=== PATIENT | female | born 1960 | race Caucasian/White ===

== ENCOUNTER 2022-06-01 16:19 | Outpatient (REF) | payer OTHER, SELFPAY ==
[2022-06-01 16:41] LABS: MANUAL DIFF FLAG NO
[2022-06-01 17:26] LABS: Basophils Absolute Auto 0.1 X10*3/uL (0.0-0.2); Basophils Percent Auto 0.7 % (0-2); Eosinophils Absolute Auto 0.1 X10*3/uL (0.0-0.4); Eosinophils Percent Auto 1.3 % (0-4); Hematocrit 39.1 % (37.0-47.0); Hemoglobin 13.5 g/dl (12.0-16.0); Imm Gran Abs Auto 0.02 X10*3/uL (0.00-0.03); Imm Gran Pct Auto 0.2 % (0.0-0.4); Lymphocytes Absolute Auto 4.4 X10*3/uL (1.2-4.9); Mean Corpuscular HGB Conc 34.5 g/dl (31.0-35.0); Mean Corpuscular Hemoglobin 30.8 pg (27.0-33.0); Mean Corpuscular Volume 89.3 fL (80.0-98.0); Mean Platelet Volume 11.8 fL (9.4-12.3); Monocytes Absolute Auto 0.6 X10*3/uL (0.1-1.2); Neutrophils Absolute Auto 3.4 x10*3/uL (2.0-8.3); Neutrophils Percent Auto 39.8 % (45-73); Platelet Count 212 X10*3/uL (160-400); Red Blood Count 4.38 X10*6/uL (4.20-5.50); Red Cell Distribution Width 13.4 % (11.0-16.0); White Blood Count 8.6 X10*3/uL (4.8-10.8)
[2022-06-01 17:39] LABS: Anion Gap 13 (12-20); Blood Urea Nitrogen 11 mg/dL (9-16); Calcium 9.3 mg/dL (8.4-10.2); Carbon Dioxide 25 mmol/L (22-29); Chloride 106 mmol/L (96-108); Estimated Glomerular Filt Rate > 60; Glucose Random 91 mg/dL (60-115); Potassium 4.5 mmol/L (3.3-5.1); Sodium 139 mmol/L (135-145)
[2022-06-01 19:17] LABS: Erythrocyte Sedimentation Rate 31 MM/HR (0-20)
== END 2022-06-01 16:20 | disposition home or self-care (01) ==
LOC: HO.LAB 16:19
PROVIDERS: Visit Provider Psychiatry & Neurology Neurology
DX: G44.209 Tension-type headache, unspecified, not intractable (principal)
CPT/HCPCS: 36415; 80048; 85025; 85652

== ENCOUNTER 2024-09-04 16:19 | Outpatient (REF) | payer OTHER, SELFPAY ==
--- OUTSIDE RECORDS SUMMARY | 2024-09-04 16:26 | XMS_ITS | Encounter Summary ---
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 Alcohol Use Standard Drinks/Week Comments No 0 (1 standard drink = 0.6 oz pur e alcohol) Comments No Sex and Gender Information Value Date Recorded Sex Assigned at Female 05/30/2017 2:14 PM PST Legal Sex Female 11:36 AM PDT Gender Identity Female 05/30/2017 2:14 PM PST Sexual Orientation Straight 09/11/2017 12 :25 PM PST documented as of this encounter Plan of Treatment Not on file documented as of this encounter Visit Diagnoses Not on filedocumented in this encounter Care Teams Lay Out Carpenter Relationship Specialty Start Date End Date Miladis Bosch FNP-C [address] [place] [id number] PCP - General Internal Medicine 12/07/23 documented as of this encounter
--- OUTSIDE RECORDS SUMMARY | 2024-09-04 16:26 | XMS_ITS | Clinical Summary ---
Author Organization [facility] Address [address] [place] [address] Phone Care Team Providers Care Interior Wirer Name Role Phone Maycol Amin MD Primary Care Provider + Allergies Active Allergy Reactions Criticality Noted Date Comments Aspirin Nausea And Vomiting 01/21/2021 Stomach upset Medications vit Bcomp,C/folic acid/zinc (B OAGDOXG-G-TDIEA ACID-ZN ORAL) Take 1 tablet by mouth 1 (one) time each day. Active cyanocobalamin/ mecobalamin (cyanocobalamin -methylcobalami n) 5,000 mcg/mL drops Place under the tongue. Active magnesium 200 mg tablet Take by mouth. Activ e meloxicam (MOBIC) 15 mg tablet Take 1 tablet (15 mg total) by mouth 1 (one) time each day. Active albuterol HFA (PROAIR HFA ; PROVENTIL HFA ; VENTOLIN HFA) 90 mcg/actuation inhaler Inhale 2 puffs by mouth every 4 (four) hours if needed. Active amitriptyline (ELAVIL) 10 mg tablet Take 1 tablet (10 mg total) by mouth at bedtime. Active aspirin 81 mg EC tablet Take 1 tablet (81 mg total) by mouth 1 (one) time each day. Active atorvastatin (LIPITOR) 40 mg tablet Take 1 tablet (40 mg total) by mouth 1 (one) time each day. Active baclofen (LIORESAL) 10 mg tablet Take 1 tablet (10 mg total) by mouth 3 (three) times a day. Active diclofenac (VOLTAREN) 1 % topical gel Apply topically. Active docusate sodium (COLACE) 100 mg capsule Take 1 capsule (100 mg total) by mouth 2 (two) times a day. Active ferrous sulfate 325 mg (65 mg elemental iron) tablet Take 1 tablet (325 mg total) by mouth 1 (one) time each day. Active gabapentin (NEURONTIN) 100 mg capsule Take 100 mg by mouth daily. Active ibuprofen (ADVIL,MOTRIN) 800 mg tablet Take 1 tablet (800 mg total) by mouth every 8 (eight) hours if needed. Active metoprolol succinate (TOPROL-XL) 50 mg 24 hr tablet Take 1 tablet (50 mg total) by mouth 1 (one) time each day. Active nitroglycerin (NITROSTAT) 0.[address] 0.4 mg under the tongue every 5 minutes as needed. Active oxyBUTYnin XL (DITROPAN-XL) 10 mg 24 hr tablet Take 1 tablet (10 mg total) by mouth 1 (one) time each day. Active pantoprazole (PROTONIX) 20 mg EC tablet Take 20 mg by mouth daily. Active pantoprazole (PROTONIX) 40 mg EC tablet Take 1 Tablet by mouth daily. Take in am on empty stomach, wait 30 mins and then eat to activate the medication 2 Active simethicone (MYLICON,GAS-X) 125 mg capsule Take by mouth. Active sucralfate (CARAFATE) 100 mg/mL suspension Take 10 mL by mouth 4 times daily. 2 Active Simethicone 125 mg tablet Take by mouth. 1 Capsule by mouth 3 times daily as needed (gassiness)., Disp-120 Capsule, R-6, Print Active dicyclomine (BENTYL) 10 mg capsule Take 1 capsule (10 mg total) by mouth 4 (four) times a day (before meals and nightly). Active loperamide (IMODIUM A-D) 2 mg tablet Take 1 tablet (2 mg total) by mouth 4 (four) times a day if needed for diarrhea. Active Active Problems Problem Noted Date Diagnosed Date Duodenitis 04/17/2024 Epigastric pain 04/17/2024 Gastric erosions 04/17/2024 Gastritis 04/17/2024 Generalized abdominal pain 04/17/2024 Lactose intolerance 04/17/2024 Passage of loose stools 04/17/2024 Cervical spondylosis 12/22/2022 Overview (04/17/2024): Last Assessment & Plan: Patient follows up for her neck and right arm pain today. She states she still gets neck and right upper trapezius pain approximately 6-8/10 on average, uses heat on her neck and knees, has a TENS unit that is been helping. She finds it difficult to lift the right arm above shoulder level due to the pain in the right upper trapezius. Unfortunately she has been having vascular and cardiac issues, was prescribed home PT, states they are doing minimal exercises given her other medical issues. She states she has very little energy, cannot leave her home unless for appointments, spends time in bed throughout the day. She does not feel steady when standing, legs feel weak like she will fall, notes left leg pain. Vascular notes mention bilateral carotid artery stenosis 75-99%, patient states she is having carotid artery endarterectomy this month on the at [facility]. She has been having issues with her blood pressure, states its been unstable, either very high or low. She has been dealing with dizziness, shortness of breath, angina, has history of a stroke in 2010. Patient had C-spine MRI 11/14/2022 at [facility] that shows diffuse disc bulging C4-5, mild right foraminal narrowing. She had EMG/NCS study 12/20/2022 that showed early carpal tunnel syndrome on the right, normal EMG right C7-T1 innervated muscles. Ms. Wagner will continue her home physical therapy for her neck pain, I gave her a new prescription to include massage to the upper trapezius, which she feels will help her. However the priority at this time is addressing her carotid artery stenosis, medical issues. I asked her to give us a call after her surgery when she is recovered, we can have her follow-up in the office to further address her neck pain, no concerning findings on neuro exam. Patient speaks Urdu, we used [employer] spanish interpreter/translator Deanne #[id number]. Hot flashes due to menopause 12/06/2022 Osteoarthritis of right hand 01/21/2021 Left leg pain 01/21/2021 Right leg pain 01/21/2021 Sciatica 01/21/2021 [facility] Overview (04/17/2024): 02/20/18 - PT at [facility] for back and leg pain, c/o multiple sxs (swelling in leg, dizziness, heart palpitations, and ringing in ears), was advised to see PCP first and will need new referral to c/w PT. B12 deficiency 10/14/2017 Arthritis of carpometacarpal (CMC) joint of left thumb 04/05/2017 Overview (04/17/2024): X-rays done 03/31/17 at [facility] 10/04/17 - L EMG at [facility]: SUMMARY: The left median and ulnar motor distal latencies, distal amplitudes, forearm nerve conduction velocities and left ulnar across elbow nerve conduction velocity are normal. The left median, ulnar and superficial radial antidromic sensory amplitudes, peak distal latencies, forearm nerve conduction velocities and ulnar across elbow nerve conduction velocity are normal. The left median and ulnar peak distal latencies are normal to palmar technique mixed nerve stimulation. Constipation, chronic 12/06/2013 Incontinence of urine in female 12/06/2013 Plantar fasciitis 12/06/2013 HLD (hyperlipidemia) 04/25/2013 HTN (hypertension) 04/25/2013 Obesity (BMI 30.0-34.9) 04/25/2013 Prediabetes 04/25/2013 CVA (cerebral vascular accident) 09/21/2011 Overview (04/17/2024): Sees Dr bradley at [facility], told has carotid blockage No intervention did Immunizations Name Administration Dates Next Due Influenza trivalent, with pr eservative (Fluzone; Afluria) 6mo and older 04/10/2017,04/25/2013 PPD Test 01/07/2015 Surgical History Surgery Date Site/Laterality Comments SHOULDER SURGERY Right PROCEDURE: HISTORICAL SHOULDER SURGERY COLONOSCOPY PROCEDURE: HISTORICAL COLONOSCOPY Medical History Medical History Date Comments Mild intermittent asthma, uncomplicated DX:Mild intermittent asthma, uncomplicated Vitamin D deficiency DX:Vitamin D deficiency Mixed hyperlipidemia DX:Mixed hy perlipidemia Nicotine dependence DX:Nicotine dependence Cerebral infarction (CMS/HCC) 2008 DX :Cerebral infarction (HCC) Acid reflux DX:Acid reflux Constipation DX:Constipation Left knee pain DX:Left knee sal n Low back pain DX:Low back pain Right leg pain DX:Right leg sal n Urinary incontinence DX:Urinary incontinence Chest pain DX:Chest pain Epigastric abdominal pain DX:Epi gastric abdominal pain Hypoglycemia, unspecified DX:Hyp oglycemia, unspecified Essential (primary) hypertension DX:Essential (primary) hypertension Passage of loose stools DX:Passa ge of loose stools Generalized abdominal pain DX:Ge neralized abdominal pain Epigastric pain DX:Epigastric pa in Gastritis DX:Gastritis Duodenitis DX:Duodenitis Gastric erosions DX:Gastric eros ions Lactose intolerance DX:Lactose i ntolerance Carotid artery stenosis DX:Carot id artery stenosis; COMMENT: surgery scheduled 06/09/23, carotid duplex - 70 to 99% stenosis bilaterally. Gassiness DX:Gassiness Abdominal pain DX:Abdominal sal n Irritable bowel syndrome DX:Irri table bowel syndrome Pain with bowel movements DX:Sal n with bowel movements Abdominal cramping DX:Abdominal cramping Social History Tobacco Use Types Packs/Day Years Used Date Smoking Tobacco: Every Day Smokeless Tobacco: Never Alcohol Use Standard Drinks/Week Comments Never 0 (1 standard drink = 0.6 oz pur e alcohol) Comments Unknown Sex and Gender Information Value Date Recorded Sex Assigned at Not on file Legal Sex Female 9:55 AM EST Gender Identity Not on file Sexual Orientation Not on file Obstetrics History Last Filed Vital Signs Vital Sign Reading Time Taken Comments Blood Pressure 124/72 02/23/2024 1:21 PM EDT Pulse 74 02/23/2024 1:21 PM EDT Temperature - - Respiratory Rate - - Oxygen Saturation - - Inhaled Oxygen Concentration - - Weight 95.3 kg (210 lb 3.2 oz) 02/23/2024 1:21 P M EDT Height 166.4 cm (5' 5.5 ) 02/23/2024 1:21 PM EDT Body Mass Index 34.45 02/23/2024 1:21 PM EDT Plan of Treatment Health Maintenance Due Date Last Done Comments DTaP,Tdap,and Td Vaccines (1 - Tdap) 1980 Pneumococcal Vaccine: 50+ Years (1 of 2 - PCV) 1980 Pneumococcal Vaccine: Pediatrics (0 to 5 Years) and At-Risk Patients (6 to 64 Years) (1 of 2 - PCV) 1980 Cervical Cancer Screening: P ap Smear 1982 Zoster Vaccines (1 of 2) 11/12/2011 Depression Screening 06/14/2022 HIV Screening 06/14/2022 Hepatitis C Screening 06/14/2022 Medicare Annual Wellness Visit 06/14/2022 Social Influencers of Health Screening 06/14/2022 Hypertension/CHF/CAD Annual BMP Blood Test 08/30/2023 04/15/2022 Breast Cancer Screening 01/25/2024 01/25/20 22, 01/28/2021 COVID-19 Vaccine (1 - 2023-2 5 season) 2024 Influenza Vaccine (#1) 2024 7, 04/25/2013 Cholesterol Screening (Lipid Panel) 04/15/2027 04/15/2022 Colorectal Cancer Screening: Colonoscopy 08/26/2031 08/26/2021 RSV Immunization Patients 60 + Years Old (1 - 1-dose 75+ series) 2036 HIB Vaccines Aged Out No longer eligi ble based on patient's age to complete this topic HPV Vaccines Aged Out No longer eligi ble based on patient's age to complete this topic Hepatitis A Vaccines Aged Out No long er eligible based on patient's age to complete this topic Hepatitis B Vaccines Aged Out No long er eligible based on patient's age to complete this topic IPV Vaccines Aged Out No longer eligi ble based on patient's age to complete this topic MMR Vaccines Aged Out No longer eligi ble based on patient's age to complete this topic Meningococcal ACWY Vaccine Aged Out N o longer eligible based on patient's age to complete this topic Meningococcal B Vacine Aged Out No lo nger eligible based on patient's age to complete this topic RSV Immunization Patients Under 20 months Aged Out No longer eligible b ased on patient's age to complete this topic Varicella Vaccines Aged Out No longer eligible based on patient's age to complete this topic Procedures Procedure Name Priority Date/Time Associated Diagnosis Comments ANNUAL BMP BLOOD TEST Routine 04/15/2022 LIPID PANEL Routine 04/15/2022 [facility] SCREENING DIGITAL Routine 01/24/2022 4:43 PM EDT Encounter for screening mammogram for malignant neoplasm of breast COLONOSCOPY Routine 08/26/2021 from Last 3 Months or Most Recently Relevant to Health Maintenance Results * Annual BMP Blood Test (04/15/2022) Annual BMP Blood Test abstracted Historical Provider HEALTH MAINTENANCE Final Result * Lipid panel (04/15/2022) Triglycerides 0 mg/dL Comment:no interpretation, a bstracted Cholesterol 0 mg/dL Comment:no interpretation, a bstracted HDL 0 mg/dL Comment:no interpretation, a bstracted LDL Cholesterol 0 mg/dL Comment:no interpretation, a bstracted Blood Venous blood specimen / Unknown Historical Provider LAB BLOOD ORDERABLES Aspen l Result * EARLENE SCREENING DIGITAL (01/24/2022 4:43 PM EDT) Anatomical Region Laterality Modality Mammography 01/24/2022 2:13 PM EDT Narrative 01/24/2022 4:43 PM EDT [facility] Diagnostic Imaging Department [address] [place] [address] Patient: ??JESÚS WAGNER ?/Age/Sex: 1960 - 61 - F Unit#: ??[id number] ? Location/Status: ??SPDIMAM/REG CLI ? Mnemonic/Ordering Site: ??DIGSC/SPMAM Ordering Physician: ??VISHNU MUHAMMAD MD Earlene Screening Digital - 01/24/22 - [id number] INDICATION: SCREENING COMPARISON: [facility] and outside mammograms dating back to 09/28/2012 TECHNIQUE: CC and MLO views of the breasts were obtained, using full field digital mammography with 3D tomosynthesis views in the MLO projection. Computer aided detection with the [employer].2-H was employed. FINDINGS: The breasts contain scattered fibroglandular tissues. Tissue marker visualized within the posteromedial left breast. ??Multiple circumscribed nodules and benign-appearing breast calcifications are again visualized bilaterally ?? . No suspicious masses, suspicious microcalcifications, or areas of architectural distortion are identified. ??There are no secondary signs of breast malignancy. IMPRESSION: ??No specific mammographic evidence of breast malignancy. Lack of an imaging correlate should not deter or delay biopsy of a clinically significant palpable finding. BI-RADS ??- Category 2 - Benign finding 3342F, 7025F Annual screening mammography is recommended. Patient entered into a reminder system with a target date for the next mammogram. ([id number] / [id number]) , ??[id number] Dictating Physician: ??UVALDO GAMBOA MD Electronically Signed by: ??UVALDO GAMBOA MD Dic Date/Time: ??01/24/22 1637 Sign date/Time: ??01/24/22 1643 Procedure Note Uvaldo Gamboa MD - 07/06/2022 [facility] Diagnostic Imaging Department [address] [place] [address] Patient: JESÚS WAGNER /Age/Sex: 1960 - 61 - F Unit#: [id number] Location/Status: [facility]/REG CLI Mnemonic/Ordering Site: [facility] Ordering Physician: VISHNU MUHAMMAD MD Earlene Screening Digital - 01/24/22 - 1445 INDICATION: SCREENING COMPARISON: [facility] and outside mammograms dating back to 09/28/2012 TECHNIQUE: CC and MLO views of the breasts were obtained, using full field digital mammography with 3D tomosynthesis views in the MLO projection. Computer aided detection with the [employer] 7.2-H was employed. FINDINGS: The breasts contain scattered fibroglandular tissues. Tissue marker visualized within the posteromedial left breast. Multiple circumscribed nodules and benign-appearing breast calcifications areagain visualized bilaterally . No suspicious masses, suspicious microcalcifications, or areas ofarchitectural distortion are identified. There are no secondary signs of breastmalignancy. IMPRESSION: No specific mammographic evidence of breast malignancy. Lack of an imaging correlate should not deter or delay biopsy of aclinically significant palpable finding. BI-RADS - Category 2 - Benign finding 3342F, 7025F Annual screening mammography is recommended. Patient entered into a reminder system with a target date for the next mammogram. [id number] / [id number]) , [id number] Dictating Physician: UVALDO GAMBOA MD Electronically Signed by: UVALDO GAMBOA MD Dic Date/Time: 01/24/22 1637 Sign date/Time: 01/24/22 1643 Vishnu Muhammad MD IMG BI PROCEDURES Final Result * Colonoscopy (08/26/2021) Colonoscopy normal, abstracted Anatomical Region Laterality Modality Other us Historical Provider HEALTH MAINTENANCE Final Result from Last 3 Months or Most Recently Relevant to Health Maintenance Insurance [employer] Care Teams Interior Wirer Relationship Specialty Start Date End Date Maycol Amin MD PCP - General 03/17/23
--- OUTSIDE RECORDS SUMMARY | 2024-09-04 16:26 | XMS_ITS | Clinical Summary ---
Author Organization [facility] Address [address] [place] [address] Care Team Providers Care Stacker Name Role Phone Danitza Miladis SANCHEZ-Luis Primary Care Provider [phone] Source Comments PLEASE NOTE, if this patient is a minor, it may be UNLAWFUL to discuss sensitive information that is contained in these records (such as FAMILY PLANNING, MENTAL HEALTH or SUBSTANCE ABUSE) with the minor patient's parent or other person without the patient's specific authorization.[facility] Allergies No known active allergies Medications compression stockingIndications :Venous insufficiency of leg Dx: Venous Insuf bilat legs. Use during the day, take off at night 2 each 2 03/07/20 14 Active phenylephrine-pramo xine (PREPARATION H) 0.25-1 % rectal creamIndications:He morrhoids, unspecified hemorrhoid type Place rectally 4 (four) times daily as needed for hemorrhoids 26 g 11 11/24/19 17 Active Miscellaneous Medical Supply miscIndications:Rig ht hand pain by miscellaneous route once daily DX left hand pain - Brace to wear daily 1 Each 03/30/20 17 Active witch fracisco (RASHARD DAVISON,) 50 %Indications:Hemorr hoids, unspecified hemorrhoid type Use as needed up to 6 times per day or after each bowel movement. 100 Each 09/11/19 18 Active cyanocobalamin, vitamin B-12, 1,000 mcg/mL injectionIndication s:B12 deficiency Inject 1,000 mcg into the muscle every 30 (thirty) days 1 Vial 5 10/15/19 18 Active omeprazole (PRILOSEC) [address] capsuleIndications: Gastroesophageal reflux disease without esophagitis,Erosive gastritis Take 2 Caps by mouth every morning before breakfast Do not crush or chew. 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 Dx: M54.41, Z74.09, Z91.81. Wt:216 lb, Ht: 5'5 . Length: lifetime. 1 Each 05/28/20 18 Active ibuprofen (ADVIL,MOTRIN) 800 mg tabletIndications:A rthritis of carpometacarpal (CMC) joint of left thumb TAKE 1 TABLET BY MOUTH THREE TIMES DAILY NEEDED FOR PAIN. TAKE WITH FOOD 90 Tab 08/23/19 19 Active docusate sodium (COLACE) 100 mg capsule Take 100 mg by mouth daily Active atorvastatin (LIPITOR) 40 mg tablet Take 1 Tablet by mouth once daily Active oxybutynin chloride (DITROPAN-XL) 10 mg 24 hr tablet Take 10 mg by mouth daily Active nicotine (NICODERM CQ) 21 mg/24 hr patch daily 04/19/20 21 Active ferrous sulfate 325 mg (65 mg iron) tablet Take 1 Tablet by mouth once daily 04/02/20 22 Active ergocalciferol, vitamin D2, (VITAMIN D2) 1,250 mcg (50,000 unit) capsule 1 capsule 11/16/19 22 Active nitroglycerin (NITROSTAT) 0.4 mg SL tablet TAKE 1 PILL SUBLINGUALLY EVERY 5 MINUTES Active magnesium 200 mg tab Take 1 Tablet by mouth daily Active albuterol sulfate 90 mcg/actuation inhaler Inhale 2 Puffs into the lungs as needed Active aspirin [address] tabletIndications:C erebrovascular accident (CVA), unspecified mechanism (HCC-CMS) Take 1 Tablet by mouth daily 90 Tablet 3 04/15/20 22 Active metoprolol succinate XL (TOPROL-XL) 50 mg 24 hr tabletIndications:P rimary hypertension,Cerebr ovascular accident (CVA), unspecified mechanism ([facility]) Take 1 Tablet by mouth once daily 90 Tablet 3 04/15/20 22 Active Active Problems Problem Noted Date Diagnosed Date Chronic midline low back pain with bilateral sci atica 02/06/2018 Overview (05/06/2018): 02/20/18 - PT at [facility] for back and leg pain, c/o multiple sxs (swelling in leg, dizziness, heart palpitations, and ringing in ears), was advised to see PCP first and will need new referral to c/w PT. Pain in both lower extremities 10/14/2017 Overview (10/14/2017): Seen by [facility] Vascular surgery - 1. Bilateral lower extremity leg pain and edema. I wrote her a prescription for compression stockings. This will help with the edema. It would be beneficial for her to lose weight as well. This will help with the edema. It is hard for me to say what her bilateral lower extremity pain is due to. It could be an arthritic problem versus spine problem. I do note, however, that it is not from her vasculature. She has excellent pulses and she has very minimal venous disease. B12 deficiency 10/14/2017 Arthritis of carpometacarpal (CMC) joint of left thumb 04/05/2017 Overview (02/26/2018): X-rays done 03/31/17 at [facility] 10/04/17 - L EMG at [facility]: SUMMARY: The left median and ulnar motor [...] normal to palmar technique mixed nerve stimulation. Erosive gastritis. EGD Feb 15 [facility]. No acute bleeding. +H. Pylori. 03/10/2015 Plantar fasciitis 12/06/2013 Incontinence of urine in female 12/06/2013 Constipation, chronic 12/06/2013 Obesity (BMI 30.0-34.9) 04/25/2013 HLD (hyperlipidemia) 04/25/2013 HTN (hypertension) 04/25/2013 H/O Prediabetes 04/25/2013 CVA (cerebral vascular accident) ([facility]) 09/20 Overview (09/20/2013): Sees Dr bradley at [facility], told has carotid blockage No intervention did Tobacco abuse disorder Resolved Problems Problem Noted Date Diagnosed Date Resolved Date Forgetfulness - seen by Neuro 10/14/2017 10/14/2017 Overview (10/14/2017): Memory loss started in 201504/07/16 - Seen by Neurology at [facility]: She also describes a worsening of her mood around the same time and I wonder if her depression is getting a pseudodementia- like state. Her poor sleep is also likely worsening her memory. I have requested lab work for reversible causes of memory decline. I requested a CT scan of her head to assess for any past stroke or extensive microvascular disease and also to evaluate for any pattern of atrophy. She will follow up with our office after testing. H/O colonoscopy with adenoma t polyp removed. 2012. [facility]. Repeat colonosc in 3ys. due November 2015 01/23/2015 10/14/2017 Overview (01/23/2015): . Obesity 12/19/2013 03/07/2014 Hypercholesterolemia 12/19/2013 014 Immunizations Name Administration Dates Next Due INFLUENZA, SEASONAL, INJECTABLE 04/10/2017 INFLUENZA, SEASONAL, INJECTABLE, PRESERVATIVE FR EE 04/25/2013 PPD 01/07/2015 Family History Medical History Relation Name Comments Cancer Maternal Aunt lung cancer Heart Problems Mother Hypertension Mother Relation Name Status Comments Maternal Aunt Mother Social History Tobacco Use Types Packs/Day Years Used Date Smoking Tobacco: Former Cigarettes 1.5 30 Smokeless Tobacco: Never Tobacco Cessation:Counseling Given: Not Answered Comments:will work counselor next visit. 2 month Alcohol Use Standard Drinks/Week Comments No 0 (1 standard drink = 0.6 oz pur e alcohol) Social Connections Answer Date Recorded Connectedness 0 06/15/2022 Financial Resource Strain Answer Date R ecorded Financial Resource Strain 0 2021 Stress Answer Date Recorded Stress 0 06/15/2022 Physical Activity Answer Date Recorded Physical Activity 0 04/08/2022 Food Insecurity Answer Date Recorded Food 0 06/15/2022 Transportation Needs Answer Date Record ed Transportation 0 06/15/2022 Housing Stability Answer Date Recorded Housing 0 06/15/2022 Safety and Environment Answer Date Archie rded Safety 0 06/15/2022 Utilities Answer Date Recorded Utilities 0 06/15/2022 Employment Answer Date Recorded Employment 0 04/08/2022 Comments No Sex and Gender Information Value Date Recorded Sex Assigned at Female 05/30/2017 2:14 PM PST Legal Sex Female 11:36 AM PDT Gender Identity Female 05/30/2017 2:14 PM PST Sexual Orientation Straight 09/11/2017 12 :25 PM PST Last Filed Vital Signs Vital Sign Reading Time Taken Comments Blood Pressure 139/86 04/15/2022 9:25 AM EDT Pulse 74 04/15/2022 9:25 AM EDT Temperature 37.1 ??C (98.7 ??F) 04/15/2022 9:25 AM ED T Respiratory Rate 16 04/15/2022 9:25 AM EDT Oxygen Saturation 97% 04/26/2018 9:34 AM EDT Inhaled Oxygen Concentration - - Weight 88 kg (194 lb) 04/15/2022 9:25 AM EDT Height 165.1 cm (5' 5 ) 08/10/2018 11:49 AM EST Body Mass Index 32.28 08/10/2018 11:49 AM EST Plan of Treatment Health Maintenance Due Date Last Done Comments HPV Screening 1961 Pap + HPV 1961 Tobacco Screening 1961 Imm-DTaP/Tdap/Td (1 - Tdap) 1980 Breast Cancer Screening (Mammogram) 2001 CT Colonography 2006 FIT/gFOBT 2006 Fecal DNA 2006 Flexible Sigmoidoscopy 2006 Imm-Zoster, Recombinant (1 of 2) 11/12/2011 Cervical Cancer Screening 12/06/2016 Pap Smear 12/06/2016 12/06/2013 Annual Preventive Care Visit 10/12/2018, 08/29/2016, 01/22/2015 Colonoscopy 04/19/2021 04/19/2016, 12/06/2012 Colorectal Cancer Screening 04/19/2021 Diabetes Screening 04/15/2023 04/15/2022, 0 04/15/2022, 08/10/2018, Additional history exists Lipid Screening 04/15/2023 04/15/2022, 08/18, 08/29/2016, Additional history exists Tobacco Cessation Counseling (#1) 04/15/2023 015 [id number] ( season) 2024 Imm-Influenza (#1) 2024 04/10/2017, 04/25/2013 Alcohol and Drug Screen 07/17/2024 06/15/20 22, 08/10/2018, 02/26/2018, Additional history exists Depression Annual Screen 07/17/2024 022, 08/10/2018, 09/11/2017, Additional history exists HIV Screening Completed 10/12/2017 Hepatitis C Screening Completed 10/12/2017 Cervical Ablation/Cold-Knife Conization Discontinued Cervical Cryotherapy Discontinued Colposcopy Discontinued Endometrial Biopsy Discontinued Excision/Leep Discontinued HPV Genotyping Discontinued Vaginal Pap Discontinued Vulvoscopy Discontinued Procedures Procedure Name Priority Date/Time Associated Diagnosis Comments COMPREHENSIVE METABOLIC PANEL Routine 04/15/2022 10:11 AM EDT Primary hypertension Obesity (BMI 30.0-34.9) Cerebrovascular accident (CVA), unspecified mechanism (HCC-CMS) LIPID PANEL Routine 04/15/2022 10:11 AM EDT Primary hypertension Mixed hyperlipidemia Cerebrovascular accident (CVA), unspecified mechanism (HCC-CMS) ANTIBODY HIV-1&HIV-2 SINGLE RESULT Routine 10/12/2017 11:37 AM EDT Routine lab draw HEPATITIS A,B,C PANEL Routine 10/12/2017 11:37 AM EDT Routine lab draw COLONOSCOPY Routine 04/19/2016 8:21 AM EDT from Last 3 Months or Most Recently Relevant to Health Maintenance Results * (ABNORMAL) LIPID PANEL (04/15/2022 10:11 AM EDT) Pathologist [facility] CHOLESTEROL, TOTAL 178 <200 mg/dL 99tests HDL CHOLESTEROL 41(L) > OR = 50 mg/dL 99tests TRIGLYCERIDES 168(H) <150 mg/dL 99tests LDL-CHOLESTEROL 109(H) 99 mg/dL (calc) 99tests Comment: Reference range: <100 Desirable range <100 mg/dL for primary prevention; ?? <70 mg/dL for patients with CHD or diabetic patients with > or = 2 CHD risk factors. LDL-C is now calculated using the Anton calculation, which is a validated novel method providing better accuracy than the Friedewald equation in the estimation of LDL-C. Gatito HAQUE et al. DARIUS. 2013;310(19): 4905-9557 (http://education.[employer]/faq/YWK732) CHOL/HDLC RATIO 4.3 <5.0 (calc) 99tests NON-HDL CHOLESTEROL 137(H) <130 mg/dL (calc) 99tests Comment: For patients with diabetes plus 1 major ASCVD risk factor, treating to a non-HDL-C goal of <100 mg/dL (LDL-C of <70 mg/dL) is considered a therapeutic option. Blood Blood / Unknown 04/15/2022 1 0:11 AM EDT 04/15/2022 10:12 AM EDT us Kingsley Cm PA-C LAB - BLOOD DRAW Final Result [facility] [address] [address], [facility] [address] [address] * (ABNORMAL) COMPREHENSIVE METABOLIC PANEL (04/15/2022 10:11 AM EDT) GLUCOSE 100(H) 65 - 99 mg/dL [facility] Comment: ?Fasting reference interval For someone without known diabetes, a glucose value between 100 and 125 mg/dL is consistent with prediabetes and should be confirmed with a follow-up test. UREA NITROGEN (BUN) 8 7 - 25 mg/dL [facility] CREATININE (blood) 0.80 0.50 - 1.05 mg/dL [facility] EGFR 84 > OR = 60 mL/min/1 .73m2 [facility] Comment: The eGFR is based on the CKD-EPI 2020 equation. To calculate the new eGFR from a previous Creatinine or Cystatin C result, go to https://www.kidney.org/professionals/ kdoqi/gfr%5Fcalculator BUN/CREATININE RATIO NOT APPLICABLE 6 - 22 [facility] SODIUM 138 135 - 146 mmol/L [facility] POTASSIUM 4.3 3.5 - 5.3 mmol/L [facility] CHLORIDE 106 98 - 110 mmol/L [facility] CARBON DIOXIDE 25 20 - 32 mmol/L [facility] CALCIUM 9.8 8.6 - 10.4 mg/dL [facility] PROTEIN, TOTAL 7.5 6.1 - 8.1 g/dL [facility] ALBUMIN 4.5 3.6 - 5.1 g/dL [facility] GLOBULIN 3.0 1.9 - 3.7 g/dL (calc) [facility] ALBUMIN/GLOBUL IN RATIO 1.5 1.0 - 2.5 (calc) [facility] BILIRUBIN, TOTAL 0.6 0.2 - 1.2 mg/dL [facility] ALKALINE PHOSPHATASE 68 37 - 153 U/L [facility] AST 14 10 - 35 U/L [facility] ALT 17 6 - 29 U/L [facility] Blood Blood / Unknown 04/15/2022 1 0:11 AM EDT 04/15/2022 10:12 AM EDT Kingsley Cm PA-C LAB - BLOOD DRAW Edited Resul t - Final [facility] [address] [address], [facility] [address] [address] * (ABNORMAL) HEPATITIS A,B,C PANEL (10/12/2017 11:37 AM EDT) HEPATITIS B SURFACE ANTIBODY NEGATIVE NEGATIVE [facility] HEPATITIS B SURFACE ANTIGEN NEGATIVE NEGATIVE [facility] Comment: Over the counter supplements containing high doses of biotin may interfere with this assay. ??If interference is suspected, patients shoud be retested after refraining from biotin supplements for 72 hours. HEPATITIS C VIRUS DIAGNOSTIC NEGATIVE NEGATIVE [facility] HEPATITIS B CORE ANTIBODY NEGATIVE NEGATIVE [facility] HEPATITIS A ANTIBODY TOTAL POSITIVE(A) NEGATIVE [facility] Comment: Over the counter supplements containing high doses of biotin may interfere with this assay. ??If interference is suspected, patients shoud be retested after refraining from biotin supplements for 72 hours. Blood specimen (specimen) Blood / Unknown 10/12/2017 11:37 AM EDT 10/12/2017 11:48 AM EDT [facility] - 10/12/2017 4:13 PM EDT [facility] [address] [place] [address] PT ID [id number] ORD# [id number] Megan Skinner PA-C LAB - BLOOD DRAW Edited R esult - Final [address] [address], [place] [phone] * HIV-1 & HIV-2 ANTIBODIES (10/12/2017 11:37 AM EDT) [facility] HIV 1 AND 2 ANTIBODY SCREEN NEGATIVE NEGATIVE [facility] Comment: This assay is a 4th generation assay allowing for earlier detection of HIV infection by detecting the presence of the HIV-1 p24 antigen as well as the traditional antibodies to HIV type 1 (including group O) and type 2. ??Use of a 4th generation assay is the current CDC recommendation for HIV screening. Blood specimen (specimen) Blood / Unknown 10/12/2017 11:37 AM EDT 10/12/2017 11:48 AM EDT [facility] - 10/12/2017 4:41 PM EDT [facility] [address] [place] [address] PT ID [id number] ORD# [id number] Megan Tereshchuk PA-C LAB - BLOOD DRAW Final Re sult [facility] [address] [place] [address], * COLONOSCOPY (04/19/2016 8:21 AM EDT) Impressions Natalie Florentino MA - 04/19/2016 8:21 AM EDT Colonoscopy Impressions: Diverticulosis of the transverse colon and descending colon Internal and external hemorrhoids Repeat in 5 years us Provider [facility] PROCEDURES Final Result from Last 3 Months or Most Recently Relevant to Health Maintenance Insurance [place] Member Subscriber Plan / Payer (Ef fective 2014-Present) Name:Pietrotripp Kamilla Relation to Subscriber:Self Name:Kamilla Wagner Payer ID:[id number] Group ID:Not on file Type:Medicaid Address: [place] [id number] [facility] Care Teams Stacker Relationship Specialty Start Date End Date Miladis Bosch FNP-C [address] [place] [address] PCP - General Internal Medicine 12/07/23
--- OUTSIDE RECORDS SUMMARY | 2024-09-04 16:26 | XMS_ITS | Patient Health Record ---
Author Organization [facility] Address [address] [place] [address] Care Team Providers Care Kettle Girl Name Role Phone Jasonsonny Sammi Primary Care Provider Unavailab Rashad Feliciano Unavailable [phone] Allergies No Known Allergies Reason For Referral No Information Medications Medication SIG (Take, Route, Frequency, Duration) Notes Start Date End Date Status Vitamin D2 Active Baclofen Active Atorvastatin Calcium 40 MG 1 tablet Oral ly Once a day for 30 day(s) Active Magnesium Active Diclofenac Sodium Ac tive Nitroglycerin Active Metoprolol Tartrate Active Pantoprazole Sodium Active oxyBUTYnin Chloride Active Amitriptyline HCl 25 MG 1 tablet at bedt sandy Orally Once a day for 30 day(s) Active Simethicone Active Acetaminophen 500 MG 1 tablet as needed Orally every 6 hrs Active Salonpas Active Aspirin 81 MG 1 tablet Orally Once a day for 30 day(s) Active Social History Tobacco Use: Social History Observation Description Date Details (start date - stop date) Current Smoker NA - NA Tobacco Use/Smoking Question Answer Notes Are you a: current smoker Alcohol Screen Question Answer Notes Did you have a drink containing alcohol in the p ast year? No Points 0 Interpretation Negative Tobacco use other than smoking: Question Answer Notes Are you an other tobacco user? No Plan Of Treatment Pending Test Test Name Order Date X ray : Foot, right 3V 10/03/2022 Insurance Providers Payer Name Payer Address Payer Phone Subscriber Number Group Number Insured Name Patient Relationship to Insured Coverage Start Date Coverage End Date [employer] [address] [address] [place] [id number] Jesús Wagner Self - patient is the insured Medical (General) History Medical History History ICD Code Stroke Heart condition CAD Reflux Anxiety Surgical History Surgery Date(Month/Year) shoulder surgery
[2024-09-04 17:06] LABS: Basophils Absolute Auto 0.1 X10*3/uL (0.0-0.2); Basophils Percent Auto 0.5 % (0-2); Eosinophils Absolute Auto 0.1 X10*3/uL (0.0-0.4); Eosinophils Percent Auto 1.3 % (0-4); Hematocrit 36.4 % (37.0-47.0); Hemoglobin 12.8 g/dl (12.0-16.0); Imm Gran Abs Auto 0.02 X10*3/uL (0.00-0.03); Imm Gran Pct Auto 0.2 % (0.0-0.4); Lymphocytes Absolute Auto 5.3 X10*3/uL (1.2-4.9); Lymphocytes Percent Auto 51.6 % (20-40); MANUAL DIFF FLAG SCAN; Mean Corpuscular HGB Conc 35.2 g/dl (31.0-35.0); Mean Corpuscular Hemoglobin 29.4 pg (27.0-33.0); Mean Corpuscular Volume 83.7 fL (80.0-98.0); Mean Platelet Volume 10.9 fL (9.4-12.3); Monocytes Absolute Auto 0.6 X10*3/uL (0.1-1.2); Neutrophils Absolute Auto 4.1 x10*3/uL (2.0-8.3); Neutrophils Percent Auto 40.4 % (45-73); Platelet Count 204 X10*3/uL (160-400); Red Blood Count 4.35 X10*6/uL (4.20-5.50); Red Cell Distribution Width 14.8 % (11.0-16.0); SCAN SMEAR FLAG 1; White Blood Count 10.2 X10*3/uL (4.8-10.8)
[2024-09-04 17:33] LABS: SLIDE REVIEW VERIFIED
[2024-09-04 18:01] LABS: Anion Gap 13 (12-20); Blood Urea Nitrogen 10 mg/dL (9-16); Calcium 9.3 mg/dL (8.4-10.2); Carbon Dioxide 24 mmol/L (22-29); Chloride 108 mmol/L (96-108); Estimated Glomerular Filt Rate > 60; Glucose Random 101 mg/dL (60-115); Magnesium 1.8 mg/dL (1.6-2.6); Phosphorus 3.9 mg/dL (2.7-4.5); Potassium 4.2 mmol/L (3.3-5.1); Sodium 141 mmol/L (135-145)
== END 2024-09-04 16:20 | disposition home or self-care (01) ==
LOC: HO.LAB 16:19
PROVIDERS: Visit Provider Registered Nurse
DX: R25.2 Cramp and spasm (principal)
CPT/HCPCS: 36415; 80048; 82550; 83735; 84100; 85025

== ENCOUNTER 2024-12-27 23:11 | Emergency (ER) | payer OTHER, SELFPAY ==
--- NOTE | ~2024-12-27 | XR_ITS ---
CLINICAL HISTORY: pain 1 view chest x-ray Comparison: None Findings: No consolidation or effusion. Normal size heart. No acute fracture. IMPRESSION: No acute cardiopulmonary abnormality. This document has been electronically signed by: Derrek Martinez on 12/28/2024 07:54:23
[2024-12-27 23:26] VITALS: BP 113/65; PULSE 60; RESP 20; TEMP 36.8; O2SAT 97; BMI 35.8
--- NOTE | 2024-12-27 23:33 | ECG_ITS ---
Test Reason : chest pain Blood Pressure : */* mmHG Vent. Rate : 61 BPM Atrial Rate : 61 BPM P-R Int : 164 ms QRS Dur : 92 ms QT Int : 428 ms P-R-T Axes : 32 -26 7 degrees QTcB Int : 430 ms Normal sinus rhythm Incomplete right bundle branch block Minimal voltage criteria for LVH, may be normal variant ( R in aVL ) Borderline ECG When compared with ECG of 10-Sep-2010 13:26, No significant changes seen Referred By: Generic ED Physician Electronically Signed By: SONIA CABEZAS MD
[2024-12-28 00:05] LABS: Basophils Percent Auto 0.4 % (0-2); Eosinophils Absolute Auto 0.2 X10*3/uL (0.0-0.4); Eosinophils Percent Auto 1.7 % (0-4); Hematocrit 33.4 % (37.0-47.0); Hemoglobin 11.8 g/dl (12.0-16.0); Imm Gran Abs Auto 0.02 X10*3/uL (0.00-0.03); Imm Gran Pct Auto 0.2 % (0.0-0.4); Lymphocytes Absolute Auto 5.8 X10*3/uL (1.2-4.9); Lymphocytes Percent Auto 57.3 % (20-40); MANUAL DIFF FLAG SCAN; Mean Corpuscular HGB Conc 35.3 g/dl (31.0-35.0); Mean Corpuscular Hemoglobin 29.2 pg (27.0-33.0); Mean Corpuscular Volume 82.7 fL (80.0-98.0); Mean Platelet Volume 11.2 fL (9.4-12.3); Monocytes Absolute Auto 0.8 X10*3/uL (0.1-1.2); Monocytes Percent Auto 7.5 % (2-11); Neutrophils Absolute Auto 3.3 x10*3/uL (2.0-8.3); Neutrophils Percent Auto 32.9 % (45-73); Platelet Count 194 X10*3/uL (160-400); Red Blood Count 4.04 X10*6/uL (4.20-5.50); Red Cell Distribution Width 14.7 % (11.0-16.0); SCAN SMEAR FLAG 1; White Blood Count 10.1 X10*3/uL (4.8-10.8)
[2024-12-28 00:23] LABS: Alanine Aminotransferase 30 U/L (0-31); Albumin Level 4.2 g/dL (3.5-5.0); Alkaline Phosphatase 90 U/L (39-117); Anion Gap 10 (12-20); Aspartate Amino Transferase 22 U/L (5-31); Bilirubin Total 0.2 mg/dL (0.0-1.0); Blood Urea Nitrogen 7 mg/dL (9-16); Calcium 8.8 mg/dL (8.4-10.2); Carbon Dioxide 21 mmol/L (22-29); Chloride 113 mmol/L (96-108); Creatinine Clr Calc Pharmacy 92.4; Estimated Glomerular Filt Rate > 60; Glucose Random 96 mg/dL (60-115); Potassium 3.9 mmol/L (3.3-5.1); Sodium 140 mmol/L (135-145); Total Protein 7.2 g/dL (6.5-8.0)
[2024-12-28 00:31] LABS: SLIDE REVIEW VERIFIED
--- NOTE | 2024-12-28 00:50 | PC.NURSE ---
called lab to check the status of troponin that was drawn almost an hour ago. Per Rimma from lab should be done in 3 hours, delayed d/t analyzer issues.
[2024-12-28 01:11] LABS: Troponin-I High Sensitivity < 2.7 ng/L (<3.5-17.0)
[2024-12-28 01:45] VITALS: BP 106/61; PULSE 58; RESP 14; TEMP 36.6; O2SAT 97
[2024-12-28 05:36] VITALS: BP 99/61; PULSE 65; RESP 19; TEMP 36.7; O2SAT 95
--- NOTE | 2024-12-28 06:54 | ED_ITS ---
HPI - General Adult General Chief complaint: General Medical Stated complaint: low blood pressure/abd pain/ short breathe Time Seen by Provider: 12/28/24 06:53 Source: patient, family and old records reviewed Mode of arrival: ambulatory Limitations: no limitations History of Present Illness ED Provider: TAMIKA COLE narrative: 64 yo female with PMH of HTN, HLD, overactive bladder, PAD s/p a procedure with Dr. Albert in past but they are not clear what the procedure is (records show CEA 2022). The patient notes 4 days of L sided chest pain with dyspnea. No recent URI, travel, procedures, no n/v, cough or fevers. The patient notes she took no medications at home for this. She states the pain is constant not worse with exertion she has been resting. I asked about BP but patient and daughter noted chest pains. No recent change in medications. Hurts to touch her chest wall. Daughter notes she has not had any precipitating events recent visit to her vascular doctor shows some L sided carotid ds plan for repeat imaging and further workup. Has had cardiac work up in past per daughter with same symptoms and notes she was there for 2 days but they told her everything was okay except the carotid ds MD complaint: chest pain Onset (ago): day(s) (4) Location: chest Radiation: non-radiation Severity: moderate Quality: aching Pain Consistency: constant Relieving factors: immobilization Exacerbating factors: movement Associated symptoms: shortness of breath Treatments prior to arrival: none Related Data Home Medications ?Medication ?Instructions ?Recorded ?Confirmed amitriptyline 25 mg tablet 25 mg PO BEDTIME 08/18/22 aspirin 81 mg tablet,delayed 81 mg PO DAILY 08/18/22 release atorvastatin 40 mg tablet 40 mg PO BEDTIME 08/18/22 baclofen 10 mg tablet 10 mg PO BEDTIME 08/18/22 diclofenac sodium 75 mg 75 mg PO BID 08/18/22 tablet,delayed release ergocalciferol (vitamin D2) 1,250 1,250 mcg PO QWEEK 08/18/22 mcg (50,000 unit) capsule (Vitamin D2) metoprolol succinate 50 mg 50 mg PO DAILY 08/18/22 tablet,extended release 24 hr nitroglycerin 0.4 mg sublingual 0.4 mg sublingual Q5M PRN 08/18/22 tablet oxybutynin chloride 10 mg 10 mg PO DAILY 08/18/22 tablet,extended release 24 hr pantoprazole 40 mg tablet,delayed 40 mg PO DAILY 08/18/22 release simethicone 125 mg capsule 125 mg PO BID-QID PRN 08/18/22 Allergies Allergy/AdvReac Type Severity Reaction Status Date / Time aspirin AdvReac Mild STOMACH Verified 12/27/24 23:26 UPSET Review of Systems 2 Review of Systems: Constitutional : No Weight loss, No Fever, No Chills ENT/Mouth : No sore throat, No Rhinorrhea Eyes: No Eye Pain, No Swelling Cardiovascular : pos Chest Pain, pos SOB, no Dyspnea on Exertion, No Orthopnea, No Edema, No Palpitations Respiratory : No Cough, No Sputum Gastrointestinal : no Nausea, No Vomiting, No Diarrhea, No abdominal Pain, No Hematochezia, No Melena Genitourinary : No Dysuria, No Urinary Frequency Musculoskeletal : No joint pain, No Myalgias, No Joint Swelling Skin : No Skin Lesions, No rash Neuro : No Weakness, No Numbness, No Dizziness, No Headache All other systems reviewed and are negative [facility], [facility] Past Medical History Attestation statement: The following information was validated with the patient. Source: old records reviewed Medical History (Updated 12/28/24 @ 09:07 by Bia Gutierrez DO) Overactive bladder HLD (hyperlipidemia) HTN (hypertension) Social History Social History (Updated 12/28/24 @ 07:34 by Bia Gutierrez DO) Patient Tobacco Use Status: Never used Tobacco Physical Exam ED Vital Signs: Vital Signs - 24 hr 12/27/24 23:26 12/28/24 01:45 12/28/24 05:36 Temperature 98.3 F 97.9 F 98.0 F Pulse Rate 60 58 65 Respiratory Rate 20 14 19 Blood Pressure 113/65 106/61 99/61 Pulse Oximetry 97 97 95 Oxygen Delivery Method Room Air Room Air Room Air 12/28/24 08:15 12/28/24 09:49 Temperature 0 F L Pulse Rate 61 61 Respiratory Rate 16 16 Blood Pressure 129/70 129/70 Pulse Oximetry 96 96 Oxygen Delivery Method Room Air Room Air BMI result Body Mass Index 35.8 Appearance: Alert. Oriented X3. No acute distress. Asleep had to be woken Eyes: Pupils equal, round and reactive to light. ENT: Pharynx normal. Neck: Normal inspection. Neck supple. CVS: Normal heart rate and rhythm. Pulses normal. CHest: ttp along L chest wall reproduces pain, hurts to lift L arm. Distal L arm 2+ radial pulse, no swelling. Respiratory: No respiratory distress. Breath sounds normal. Abdomen: Soft and nontender. Skin: Skin warm and dry. Normal skin color. Normal skin turgor. Extremities: No lower extremity edema. No calf ttp Neuro: Oriented X 3. No motor deficit. No sensory deficit. CN2-12 intact Medications Administered Discontinued Medications Generic Name Dose Route Start Last Admin Trade Name Álvaroq PRN Reason Stop Dose Admin Sodium Chloride 500 mls @ 500 mls/hr 12/28/24 07:26 12/28/24 09:45 Ns IV 12/28/24 08:25 Infused .Q1H ONE Infusion Acetaminophen 1,000 mg in 100 mls @ 400 mls/hr 12/28/24 07:26 12/28/24 09:44 Ofirmev IV 12/28/24 07:40 Infused ONCE ONE Infusion Medical Decision Making Medical Decision Making [facility] Narrative: 64 yo female with PMH of HTN, HLD, overactive bladder, carotid endarterectomy 2022 here with c/o L chest wall pain x 4 days with some dyspnea. She has taken no medications at home for it. NO recent travel/procedures, no infectiouns. On exam her chest wall hurts to touch. At this time given her age and history I am going to obtain trop x 2, ddimer, CXR. Possible VTE, atypical ACS, chest wall pain Differential Diagnosis Differential Diagnoses: The differential diagnosis associated with the presentation includes VTE, atyipical ACS, med reaction, chest wall pain distal pulses intact doubt dissection and presentation over 4 days atypical Admission/Observation Consideration of admission/observation: Escalation of care including admission/observation considered repeat trop negative, ddimer negative, BP stable, CXR stable, in 9 hours in ED no events, neg work up with 4 days of symptoms BP 129/70 on discharge Lab Data [facility] Lab Attestation statement: I reviewed the patient's lab results. neg ddimer based off age adjusted 12/27/24 23:59 12/27/24 23:59 Labs: Lab Results 12/27/24 12/28/24 Range/Units 23:59 08:22 WBC 10.1 (4.8-10.8) X10*3/uL RBC 4.04 L (4.20-5.50) X10*6/uL Hgb 11.8 L (12.0-16.0) g/dl Hct 33.4 L (37.0-47.0) % MCV 82.7 (80.0-98.0) fL MCH 29.2 (27.0-33.0) pg MCHC 35.3 H (31.0-35.0) g/dl RDW 14.7 (11.0-16.0) % Plt Count 194 (160-400) X10*3/uL MPV 11.2 (9.4-12.3) fL Immature Gran % (Auto) 0.2 (0.0-0.4) % Neut % (Auto) 32.9 L (45-73) % Lymph % (Auto) 57.3 H (20-40) % [place] % (Auto) 7.5 (2-11) % Eos % (Auto) 1.7 (0-4) % Baso % (Auto) 0.4 (0-2) % Lymph # (Auto) 5.8 H (1.2-4.9) X10*3/uL [place] # (Auto) 0.8 (0.1-1.2) X10*3/uL Eos # (Auto) 0.2 (0.0-0.4) X10*3/uL Baso # (Auto) 0.0 (0.0-0.2) X10*3/uL Abs Immat Gran (auto) 0.02 (0.00-0.03) X10*3/uL Absolute Neuts (auto) 3.3 (2.0-8.3) x10*3/uL Absolute Nucleated RBC 0.000 (0.0-0.012) X10*3/uL Nucleated RBC % (auto) 0.0 (0.0-0.2) /100WBC Smear Tech's Comments VERIFIED D-Dimer High Sensitivty 233 NG/ML Sodium 140 (135-145) mmol/L Potassium 3.9 (3.3-5.1) mmol/L Chloride 113 H (96-108) mmol/L Carbon Dioxide 21 L (22-29) mmol/L Anion Gap 10 L (12-20) BUN 7 L (9-16) mg/dL Creatinine 0.72 (0.5-1.4) mg/dL Estim Creat Clear Calc 92.4 Estimated GFR > 60 Random Glucose 96 (60-115) mg/dL Calcium 8.8 (8.4-10.2) mg/dL Total Bilirubin 0.2 (0.0-1.0) mg/dL AST 22 (5-31) U/L ALT 30 (0-31) U/L Alkaline Phosphatase 90 (39-117) U/L Troponin I High Sens < 2.7 < 2.7 (<3.5-17.0) ng/L B-Natriuretic Peptide 33 (<100) pg/mL Total Protein 7.2 (6.5-8.0) g/dL Albumin 4.2 (3.5-5.0) g/dL Independent Interpretation I performed an independent interpretation of an: EKG and Plain X-Ray (normal ) Interpretation: Rate: 61 Rhythm: NSR [place]: left Normal P waves. Normal SEPIDE[place]. Normal QRS complex. ST T wave : no BRIDGET, inverted t waves III, V1 qTC: 430 prior studies: no change from prior The study has been interpreted contemporaneously by me. . Radiology Impression Discussion of test interpretation with radiology: I have reviewed the radiologist's reading. Independent Historian Clinical information obtained from an independent historian. History obtained from or confirmed by: Other (daughter) External Record Review External record reviewed: Outpatient record Discharge Plan Discharge Clinical Impression: Chest pain Qualifiers: Chest pain type: unspecified Qualified Code(s): R07.9 - Chest pain, unspecified Patient Disposition: Home, Self-Care Instructions: Chest Pain (ED) Additional Instructions: labs reassuring heart tests negative x 2 EKG reassuring blood clot test negative please follow up with your doctor return for any worsening symptoms or concerns. Prescriptions: No Action amitriptyline 25 mg tablet 25 mg PO BEDTIME aspirin 81 mg tablet,delayed release (DR/EC) 81 mg PO DAILY atorvastatin 40 mg tablet 40 mg PO BEDTIME baclofen 10 mg tablet 10 mg PO BEDTIME diclofenac sodium 75 mg tablet,delayed release (DR/EC) 75 mg PO BID metoprolol succinate 50 mg tablet extended release 24 hr 50 mg PO DAILY nitroglycerin 0.4 mg tablet, sublingual 0.4 mg sublingual Q5M PRN Rx Instructions: do not exceed 3 doses per episode oxybutynin chloride 10 mg tablet extended release 24hr 10 mg PO DAILY pantoprazole 40 mg tablet,delayed release (DR/EC) 40 mg PO DAILY simethicone 125 mg capsule 125 mg PO BID-QID PRN ergocalciferol (vitamin D2) [Vitamin D2] 1,250 mcg (50,000 unit) capsule 1,250 mcg PO QWEEK Interventions: ED Discharge Assessment Last Done: 12/28/24 09:49 Discharge Date/Time: 12/28/24 10:18 Print Language: Lithuanian
[2024-12-28 08:15] VITALS: BP 129/70; PULSE 61; RESP 16; O2SAT 96
[2024-12-28 08:36] LABS: D Dimer High Sensitivity 233 NG/ML
[2024-12-28 08:48] LABS: B Type Natriuretic Peptide 33 pg/mL (<100)
[2024-12-28 08:51] LABS: Troponin-I High Sensitivity < 2.7 ng/L (<3.5-17.0)
[2024-12-28] MEDS: 0.9 % Sodium Chloride 500 ML IV (08:55)
[2024-12-28] MEDS: Acetaminophen 1,000 MG/100 ML PIGGYBACK 400 MG IV (08:56)
[2024-12-28 09:49] VITALS: BP 129/70; PULSE 61; RESP 16; TEMP -17.7; TEMP 0; O2SAT 96
== END 2024-12-28 10:18 | disposition home or self-care (01) ==
PROVIDERS: Emergency Provider Emergency Medicine
DX: R07.9 Chest pain, unspecified (principal); R06.00 Dyspnea, unspecified; I10 Essential (primary) hypertension; E78.5 Hyperlipidemia, unspecified; Z79.82 Long term (current) use of aspirin; Z79.02 Long term (current) use of antithrombotics/antiplatelets; Z79.899 Other long term (current) drug therapy
CPT/HCPCS: 36415; 71045; 80053; 83880; 84484; 85025; 85379; 93005; 96361; 96365; 99284; 99285; J0131

== ENCOUNTER → 2024-12-27 23:33 | Outpatient (BNV) | payer OTHER, SELFPAY | PROVIDERS: Emergency Provider Emergency Medicine; Visit Provider Internal Medicine Cardiovascular Disease | DX: I45.10 Unspecified right bundle-branch block (principal) | CPT/HCPCS: 93010 ==

== ENCOUNTER → 2024-12-28 07:26 | Outpatient (BNV) | payer OTHER, SELFPAY | PROVIDERS: Emergency Provider Emergency Medicine; Visit Provider Radiology Vascular & Interventional Radiology | DX: R07.9 Chest pain, unspecified (principal) | CPT/HCPCS: 71045 ==